=== PATIENT | male | born 1985 | race Caucasian/White ===

== ENCOUNTER 2016-05-25 11:45 | Emergency (ER) | payer OTHER ==
[~2016-05-25] VITALS: Ht 193 cm; Wt 122.5 kg
[2016-05-25 11:50] VITALS: BP 115/67
== END 2016-05-25 12:23 | disposition home or self-care (01) ==
LOC: ER 11:47
DX: H65.91 Unspecified nonsuppurative otitis media, right ear (principal); F32.9 Major depressive disorder, single episode, unspecified; F41.9 Anxiety disorder, unspecified; F17.200 Nicotine dependence, unspecified, uncomplicated
CPT/HCPCS: 99282; A4606; Z7610

== ENCOUNTER 2017-05-01 12:56 | Emergency (ER) | payer OTHER ==
[~2017-05-01] VITALS: Ht 193 cm; Wt 113.4 kg
[2017-05-01 12:56] VITALS: BP 137/64
== END 2017-05-01 13:46 | disposition home or self-care (01) ==
LOC: ER 13:09
DX: H92.02 Otalgia, left ear (principal); F32.9 Major depressive disorder, single episode, unspecified; F41.9 Anxiety disorder, unspecified; F10.10 Alcohol abuse, uncomplicated; F17.200 Nicotine dependence, unspecified, uncomplicated; Z60.2 Problems related to living alone; Z98.890 Other specified postprocedural states
CPT/HCPCS: 99282; A4606; Z7610